=== PATIENT | male | born 1935 | race Caucasian/White ===

== ENCOUNTER 2016-10-23 06:00 | Inpatient (IN) | payer OTHER ==
[2016-09-27 13:22] VITALS: BMI 24.0
--- NOTE | 2016-09-27 13:48 | PAT Medication Instructions ---
Service Date Sep 27, 2016. Current Home Medication List Midodrine (Midodrine HCl), 5 MG PO BID Multivitamins/Minerals (Mvi With Minerals), 1 TAB PO QAM Naproxen (Aleve), 220 MG PO Q12 PRN for Pain Medication Instructions For Your Scheduled Surgery - Hold the following medications the morning of surgery: Multivitamins/Minerals (Mvi With Minerals), 1 TAB PO QAM Naproxen (Aleve), 220 MG PO Q12 PRN for Pain (otherwise okay to continue per surgeon) - Take the following medications the morning of surgery with a sip of water OTHERWISE NOTHING TO EAT OR DRINK AFTER MIDNIGHT: Midodrine (Midodrine HCl), 5 MG PO BID - Take the following medications as scheduled the night before surgery: Midodrine (Midodrine HCl), 5 MG PO BID Naproxen (Aleve), 220 MG PO Q12 PRN for Pain If you have any questions please call us at [phone] or [phone] or [phone]
--- NOTE | 2016-09-27 14:07 | DIAGNOSTIC IMAGING REPORT ---
CHEST PREADMISSION(PA/LAT) CLINICAL HISTORY: Preoperative chest COMPARISON STUDY: 12/25/2011 FINDINGS: The cardiac and mediastinal contours are normal. There is no evidence of focal pulmonary consolidation. There is no evidence of failure. No pleural effusions are visualized.[ A vague rounded opacity at the right lung base is felt to represent a nipple shadow. IMPRESSION: No active disease in the chest. Electronically signed by: Eduardo Robertson M.D. 09/27/2016 2:06 PM Dictated Date/Time: 09/27/2016 2:03 PM
[2016-09-27 14:14] LABS: BASO % 0.4 %; BASO ABS # 0.03 K/uL (0-0.2); COMPLETE YES; HEMATOCRIT 42.6 % (42-52); IG% 0.1 %; LYMPH % 20.8 %; LYMPH ABS # 1.45 K/uL (1.2-3.4); MEAN CORPUSCULAR HEMOGLOBIN 32.1 pg (25-34); MEAN CORPUSCULAR HGB CONC 34.5 g/dl (32-36); MONO % 4.3 %; NEUT % 73.4 %; PLATELET COUNT 216 K/uL (130-400); RED BLOOD COUNT 4.58 M/uL (4.7-6.1); WHITE BLOOD COUNT 6.98 K/uL (4.8-10.8)
[2016-09-27 14:25] LABS: ESTIMATED AVERAGE GLUCOSE 114 mg/dl; HA1C FLAG Normal (Normal)
[2016-09-27 15:06] LABS: BUN/CREATININE RATIO 17.7 (10-20); CALCIUM 9.6 mg/dl (8.5-10.1); CREATININE 1.2 mg/dl (0.60-1.40)
--- NOTE | 2016-10-03 16:25 | History and Physical ---
History & Physical Date Oct 03, 2016. Chief Complaint Right Knee Pain History of Present Illness Edward is a pleasant 81-year-old male who presents for preoperative evaluation prior to a right knee replacement. Patient states that they have been having pain in this knee for many years now, which has gradually worsened, it has now gotten to the point it is affecting his daily activities including walking, standing, going up and down steps. Patient has tried and failed conservative measures including previous cortisone injection, viscosupplementation, PO NSAIDs, as well as previous knee arthroscopy with no relief. At this point in time, patient has failed conservative measures and would like to proceed with a Right knee replacement. Past Medical/Surgical History Patient denies history of HTN, high cholesterol, Diabetes Previous Surgeries: Left TKA 11-12-12 Right Knee Partial medial meniscectomy, Partial lateral meniscectomy, Removal of loose body, 1 cm x 2 cm. Additional History Hepatic Disease: No Endocrine Disorder: No Kidney Disease: No Hypertension: No Heart Disease: No Bleeding Tendencies: No Allergies Coded Allergies: No Known Allergies (Unverified , 09/27/16) Home Medications Scheduled Midodrine (Midodrine HCl), 5 MG PO BID Multivitamins/Minerals (Mvi With Minerals), 1 TAB PO QAM Scheduled PRN Naproxen (Aleve), 220 MG PO Q12 PRN for Pain Physical Examination Skin: warm/dry, no rash Eyes: normal inspection, EOMI, sclerae normal ENT: normal ENT inspection, pharynx normal Head: normocephalic, atraumatic Respiratory/Chest: lungs clear, normal breath sounds, no respiratory distress Cardiovascular: regular rate, rhythm, no edema, no murmur Abdomen / GI: normal bowel sounds, non tender Addiitonal Comments: Physical Exam Exam Findings Details Strength LE * Strength Description - Knee: Right: strength is normal. Knee ROM L * Active ROM - Flexion: 135 degrees, Extension: 0 degrees, Factors: normal, Description: active pain free range of motion. Passive ROM - Flexion: 135 degrees, Extension: 0 degrees, Factors: normal, Description: passive pain free range of motion. Knee ROM R * Active ROM - Flexion: 125 degrees, Extension: 3 degrees, Factors: pain, Description: active painful range of motion. Passive ROM - Flexion: 125 degrees, Extension: 5 degrees, Factors: pain, Description: passive painful range of motion. Strength LE Normal Strength Description - Hip: Right: strength is normal. Ankle/ Foot: Right: strength is normal. Knee * Inspection - Gait: limp. Alignment - Right: neutral, Left: neutral. Ecchymosis - Right: negative, Left: negative. Effusion - Right: mild, Left: normal. Swelling - Right: mild, Left: none. Flexibility - Right: normal, Left: normal. Maximum tenderness - Right: medial joint line, lateral joint line, patella, Left: normal. Patella exam - Crepitation - Right: mild, Left: normal. Patella position - Right: neutral, Left: neutral. Tilt - Right: equal, Left: normal. [facility]'s - lateral - Right: Positive. [facility]'s - medial - Right: Positive. Valgus stress - Right: Positive, trace (<2 mm). Varus stress - Right: Positive, trace (<2 mm). Knee Comments No calf tenderness Knee Normal Inspection - Atrophy - Right: Absent, Left: Absent. Skin - Right: Normal, Left: Normal. Patella exam - Apprehension - Right: Negative, Left: Negative. Q-angle - Right: Normal, Left: Normal. Parisa's - Right: Negative, Left: Negative. [facility]'s - lateral - Left: Negative. Marisol's - medial - Left: Negative. Posterior drawer - Right: Negative, Left: Negative. Anterior drawer - Right: Negative, Left: Negative. Valgus stress - Left: Negative. Varus stress - Left: Negative. Neurovascular LE Normal Neurovascular examination including reflexes, sensation , and pulses is within normal limits. Right Knee X-Ray: Xrays reviewed of the Right knee showing findings consistent with degenerative joint disease including joint space narrowing, subchondral sclerosis and peripheral osteophyte formation. no acute bony pathology, overall varus alignment. Impression: degenerative joint disease of the Right knee with no acute bony pathology noted. Diagnosis Right Knee Osteoarthritis - Further care discussed with patient and at this point in time has failed conservative measures and would like to proceed with a right total knee replacement. Plan on discharge will be home with home health physical therapy. DVT prophalaxis with TEDs, SCDs and will also place on aspirin 81 mg p.o. b.i.d. for a month postop. Patient will have follow up appointment in our office two weeks post op for staple/suture removal and re-evaluation. Patient otherwise has no other questions or concerns.
[~2016-10-23] VITALS: Ht 182.9 cm; Wt 81.6 kg
[2016-10-23] VITALS (11 sets, daily range): BP systolic 116–166; BP diastolic 74–99; PULSE 62–95; TEMP 36.4–37.1; O2SAT 96–99; Ht 182.9 cm; Wt 81.6 kg
[~2016-10-23 06:00] MED LIST: CEFAZOLIN 2000 MG/60 ML D5W IV SCH; LACTATED RINGER'S 1000ML 1,000 ML IV SCH; LACTATED RINGER'S 1000ML 500 ML IV ONE; MULTTAB PO; NAPR1TAB9 PO; PRMT25 PO; ROPIVACAINE 5MG/ML 30 ML 150 MG, BUPIVACAINE/EPINEPHR 0.5% MPF 30 ML, KETOROLAC TROMETH... INFIL SCH
[2016-10-23] MEDS ORDERED: BUPIVACAINE 0.5 % 5 MG/1 ML PF 10ML VIAL ONE (06:40)
[2016-10-23] MEDS ORDERED: BUPIVACAINE 0.25% 30 ML VIAL ONE (06:41)
[2016-10-23] MEDS ORDERED: MIDAZOLAM HCL 1 MG/ML 2ML VIAL ONE ×2 (06:42)
[2016-10-23] MEDS ORDERED: FENTANYL CITRATE INJ 50 MCG/1 ML 2 ML VIAL ONE (06:43)
--- NOTE | 2016-10-23 06:56 | History & Physical Bridge Note ---
H&P Re-Evaluation Bridge Note: I have examined the patient, reviewed the History & Physical and in the interval since the performance of the History & Physical I have noted the following changes of clinical significance: No changes noted
[2016-10-23] MEDS ORDERED: POVIDONE-IODINE OP SOLN 30 ML BTL ONE (06:58)
[2016-10-23] MEDS ORDERED: ORTHO JOINT ANESTHETIC ONE (06:58)
[2016-10-23] MEDS ORDERED: BACITRACIN 50000 UNIT VIAL ONE (06:58)
[2016-10-23] MEDS: TRANEXAMIC ACID INJ 1,000 MG in SODIUM CHLORIDE 0.9% 100ML 100 ML IV SCH ×2 (07:09→10:52)
[2016-10-23] MEDS ORDERED: EpHEDrine SULFATE INJ 50 MG/ML AMP IV PRN (07:30)
[2016-10-23] MEDS ORDERED: FENTANYL CITRATE INJ 50 MCG/1 ML 2 ML VIAL IV PRN (07:30)
[2016-10-23] MEDS ORDERED: ATROPINE SULFATE 0.1 MG/ML 5ML SYR IV PRN (07:30)
[2016-10-23] MEDS ORDERED: ONDANSETRON INJ 2 MG/ML 2 ML VIAL IV PRN ×2 (07:30→09:30)
--- NOTE | 2016-10-23 09:01 | [facility] Operative Report ---
Operative Report Operative Date Oct 23, 2016. Pre-Operative Diagnosis Right Total Knee Arthroplasty Post-Operative Diagnosis Same as preop Procedure(s) Performed Right Total Knee Arthroplasty utilizing Alexander & Nephew journey 2 patient matched total knee arthroplasty size 6 femur 6 tibia 15 Mony [address] 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 Right Total Knee Arthroplasty Complication(s) None Disposition Recovery Room / PACU Indications Patient presents after failing conservative management including injections anti -inflammatory progress activity modification bracing Description of Procedure After proper prepping and draping of the Right lower extremity anterior midline incision was made over the region of the extensor extensor mechanism after meticulous hemostasis was obtained and maintained in subcutaneous tissues a medial parapatellar incision was made The patella was subluxed lateralward the medial lateral gutter were cleaned from any hypertrophic synovitis and scar tissue of the distal femoral block was placed and the distal femoral osteotomy cut was made subsequently the chamfers anterior and posterior osteotomy cuts were made utilizing the 4-in-1 block the tibia was subsequently subluxed anteriorward medial and ateral meniscal remnants were excised in their entirety remnants of the anterior and posterior cruciate ligaments were excised in their entirety excellent exposure of the proximal tibia was obtained the tibial osteotomy guide was placed on the proximal tibial osteotomy cut was made once again the knee was irrigated with copious amounts of sterile saline solution the patella was subsequently everted lateralward thickened scar tissue around the patella was removed the patella was subsequently cut utilizing a freehand technique and was drilled prepared for final preparation and placement of patella socially flexion-extension gaps were checked and the equal and symmetric trials were placed to the appropriate femoral and tibial trials with poly-spacer being placed for equal flexion and extension gaps and full range of motion including extension to 0 and flexion to 140 the trial components after having been taken to recovery range of motion was subsequently removed meticulous hemostasis was obtained and maintained subsequently a knee block injection of joint cocktail including ropivacaine 0.5% 150 mg. Bupivacaine 0.5 % epinephrine 1-200,030 mL's toradol 30 mg dexamethasone 4 mg ketamine 10 mg clonidine 100 micrograms normal saline solution 30 mg was infiltrated into the soft tissues of the posterior knee medial lateral gutters and periosteal synovium special attention was paid to protect neurovascular structures at all times subsequently trial components having been removed the knee was irrigated with sterile saline solution. debris was removed the proximal tibia was subsequently prepared and was made ready for the placement of the tibial component tibial component was also cemented and tamped into position the femoral component was subsequently placed and cemented in the position the patellar component was subsequently cemented in position because hemostasis once again obtained and maintained wound having been thoroughly irrigated with debridement and debridement lavage was performed as well as a medial parapatellar incision closed with #1 Vicryl in interrupted fashion subcutaneous was closed with #2 Vicryl skin was closed with skin clips. PA-C was necessary for prepping and drapping as well as wound closure of deep fascia Sub cutaneous tissue and skin and was necessary for the case. A sterile compressive dressing was placed patient was taken to recovery in stable condition of report dictated by Delvin I attest to the content of the Intraoperative Record and any orders documented therein. Any exceptions are noted below. I attest to the content of the Intraoperative Record and any orders documented therein. Any exceptions are noted below.
[2016-10-23] MEDS ORDERED: PROPOFOL IV EMULSION 10 MG/ML 20 ML VIAL IV ONE (09:13)
[2016-10-23] MEDS ORDERED: LIDOCAINE HCL 2% 2 ML VIAL (20MG/ML) ONE (09:13)
[2016-10-23] MEDS ORDERED: SOD PHOSPHATE/SOD BIPHOSPHATE ENEMA 132 ML BTL PR PRN (09:30)
[2016-10-23] MEDS ORDERED: MAGNESIUM HYDROXIDE SUSP 30 ML UDC PO PRN (09:30)
[2016-10-23] MEDS ORDERED: KETOROLAC TROMETHAMINE 15 MG/ML VIAL IV. PRN (09:30)
[2016-10-23] MEDS ORDERED: MoRPHine SULFATE 2 MG/ML CARP IV PRN (09:30)
[2016-10-23] MEDS ORDERED: BISACODYL 10 MG SUPP PR PRN (09:30)
[2016-10-23] MEDS ORDERED: ALUMINUM/MAGNESIUM/SIMETH (MAALOX MAX) 30 ML UDC PO PRN (09:30)
--- NOTE | 2016-10-23 09:48 | DIAGNOSTIC IMAGING REPORT ---
RIGHT KNEE 2 VIEWS History: Right total knee arthroplasty. Degenerative arthritis. Postop. FINDINGS: The patient is status post a right total knee arthroplasty. The hardware is intact. No fracture or dislocation. Surgical drains are in place. IMPRESSION: Right total knee arthroplasty. No evidence for hardware complication. Electronically signed by: Amaury Joaquin M.D. 10/23/2016 9:47 AM Dictated Date/Time: 10/23/2016 9:46 AM
[2016-10-23] MEDS ORDERED: MoRPHine SULFATE 4 MG/ML 1 ML CARP\\VIAL IV PRN (10:00)
[2016-10-23] MEDS ORDERED: MoRPHine SULFATE 10 MG/ML CARP/VIAL IV PRN (10:00)
--- NOTE | 2016-10-23 10:02 | Anesthesiology Progress Note ---
Anesthesia Post Op Note Date & Time Oct 23, 2016 at 10:02 Vital Signs Pain Intensity: 0 Vital Signs Past 12 Hours Date Time Temp Pulse Resp B/P (MAP) Pulse Ox O2 Delivery O2 Flow Rate FiO2 10/23/16 09:26 36.2 68 14 125/77 97 Mask 10 10/23/16 06:41 36.5 81 20 145/99 98 Room Air Notes Mental Status: alert / awake / arousable, participated in evaluation Pt Amnestic to Procedure: Yes Nausea / Vomiting: adequately controlled Pain: adequately controlled Airway Patency, RR, SpO2: stable & adequate BP & HR: stable & adequate Hydration State: stable & adequate Neuraxial Anesthesia: was administered, sensory block is resolving Anesthetic Complications: no major complications apparent
[2016-10-23] MEDS: D5W AND 1/2NSS + 20MEQ KCL 1,000 ML IV SCH ×2 (11:07→21:15)
[2016-10-23] MEDS: CEFAZOLIN IV 2,000 MG in DEXTROSE 5% 50ML 50 ML IV SCH ×2 (15:57→23:41)
[2016-10-23] MEDS: MIDODRINE 2.5 MG TAB PO SCH (15:57)
[2016-10-23] MEDS: OXYCODONE HCL IR 5 MG TAB (IMMEDIATE RELEASE) PO PRN (15:58)
[2016-10-23] MEDS: DOCUSATE SODIUM 100 MG CAP PO SCH (21:16)
[2016-10-23] MEDS: SENNA 8.6 MG TAB PO SCH (21:16)
[2016-10-23] MEDS: OXYCODONE HCL 10 MG TABCR (OXYCONTIN) PO SCH (21:17)
[2016-10-23] MEDS: ASPIRIN 81 MG ECTAB PO SCH (21:17)
[2016-10-23] MEDS: ACETAMINOPHEN 500 MG TAB PO SCH (21:50)
[2016-10-24] VITALS (9 sets, daily range): BP systolic 114–159; BP diastolic 73–91; PULSE 72–98; TEMP 36.7–37.1; O2SAT 93–99
[2016-10-24] MEDS: ACETAMINOPHEN 500 MG TAB PO SCH ×3 (05:56→21:55)
[2016-10-24] MEDS: D5W AND 1/2NSS + 20MEQ KCL 1,000 ML IV SCH (05:56)
[2016-10-24 06:14] LABS: HEMATOCRIT 37.4 % (42-52); MEAN CELL VOLUME 92.6 fL (80-100); MEAN CORPUSCULAR HEMOGLOBIN 30.4 pg (25-34); MEAN CORPUSCULAR HGB CONC 32.9 g/dl (32-36); MEAN PLATELET VOLUME 11.3 fL (7.4-10.4); PLATELET COUNT 207 K/uL (130-400); RED BLOOD COUNT 4.04 M/uL (4.7-6.1); WHITE BLOOD COUNT 9.76 K/uL (4.8-10.8)
[2016-10-24 06:22] LABS: INR 1.1 (0.9-1.1); PROTHROMBIN TIME (PATIENT) 11.6 SECONDS (9.0-12.0)
[2016-10-24 06:51] LABS: BUN/CREATININE RATIO 16.1 (10-20); CALCIUM 9.1 mg/dl (8.5-10.1); CREATININE 1.1 mg/dl (0.60-1.40); POTASSIUM 4.9 mmol/L (3.5-5.1)
--- NOTE | 2016-10-24 07:04 | Orthopedic Progress Note ---
Orthopedic Progress Note Date of Service Oct 24, 2016. Subjective Post OP Day: 1 (s/p Right TKA) Reports: feeling well, pain controlled w PO medications, Denies: complaints, chest pain, SOB, nausea / vomiting, light headedness, calf pain Additional Notes: has c/o mild right foot pain, no injuries. Objective calves soft nontender, N/V intact, capillary refill less than 2 sec., dressing C /D/I, A&O x3, toes mobile, hemovac drainage (200cc/ 8 hours) Date Time Temp Pulse Resp B/P (MAP) Pulse Ox O2 Delivery O2 Flow Rate FiO2 10/24/16 03:44 36.9 72 18 114/73 (87) 97 Room Air 10/23/16 23:43 Room Air 10/23/16 22:50 37.1 86 16 116/74 (88) 96 Room Air 10/23/16 19:31 36.4 95 16 148/95 (112) 98 Room Air 10/23/16 15:55 136/87 (103) 98 Room Air 10/23/16 15:40 Room Air 10/23/16 15:32 36.5 75 16 166/94 (118) 99 Room Air 2.0 10/23/16 13:19 36.4 63 16 148/79 (102) 98 Nasal Cannula 2.0 10/23/16 12:13 63 18 142/81 (101) 98 Nasal Cannula 2.0 10/23/16 11:03 62 18 136/81 (99) 99 Nasal Cannula 2.0 10/23/16 10:50 98 Nasal Cannula 2.0 10/23/16 10:47 63 18 138/84 (102) 98 Nasal Cannula 2.0 10/23/16 10:15 Nasal Cannula 2.0 10/23/16 10:15 36.5 89 18 147/89 (108) 99 Nasal Cannula 2.0 10/23/16 10:15 99 Nasal Cannula 2.0 10/23/16 10:05 36.0 64 14 140/88 98 Nasal Cannula 2 10/23/16 09:55 67 13 133/88 100 Nasal Cannula 2 10/23/16 09:45 69 16 135/82 98 Nasal Cannula 2 10/23/16 09:35 72 15 135/81 99 Nasal Cannula 2 10/23/16 09:26 36.2 68 14 125/77 97 Mask 10 Laboratory Results 24 Hours: Test 10/24/16 05:44 Hematocrit 37.4 % Hemoglobin 12.3 g/dL Prothromb Time International Ratio 1.1 Prothrombin Time 11.6 SECONDS Assessment & Plan Assessment: POD #1 s/p right tka -pt/ot -dvt with rama/scd/asa -plan for d/c home with OPPT @ [facility]. will monitor right foot pain, minimal tenderness, no erythema or warmth. might be related to resting on foot bump during surgery, if pain continues will order xrays. Discharge Planning DVT Prophylaxis: TEDs, SCDs, ASA Therapy: Physical Therapy
--- NOTE | 2016-10-24 07:48 | Anesthesiology Progress Note ---
Anesthesia Post Op Note Date & Time Oct 24, 2016 at 07:47 Vital Signs Pain Intensity: 0.0 Vital Signs Past 12 Hours Date Time Temp Pulse Resp B/P (MAP) Pulse Ox O2 Delivery O2 Flow Rate FiO2 10/24/16 07:43 96 Room Air 10/24/16 07:31 36.7 72 18 130/82 (98) 96 Room Air 10/24/16 03:44 36.9 72 18 114/73 (87) 97 Room Air 10/23/16 23:43 Room Air 10/23/16 22:50 37.1 86 16 116/74 (88) 96 Room Air Notes Mental Status: alert / awake / arousable Pt Amnestic to Procedure: Yes Nausea / Vomiting: adequately controlled Pain: adequately controlled Airway Patency, RR, SpO2: stable & adequate BP & HR: stable & adequate Hydration State: stable & adequate Neuraxial Anesthesia: sensory block resolved Anesthetic Complications: no major complications apparent
[2016-10-24] MEDS: DOCUSATE SODIUM 100 MG CAP PO SCH ×2 (08:56→20:20)
[2016-10-24] MEDS: MULTIVITAMIN TAB PO SCH (08:56)
[2016-10-24] MEDS: ASPIRIN 81 MG ECTAB PO SCH ×2 (08:56→20:20)
[2016-10-24] MEDS: PANTOprazole SOD 40 MG TAB PO SCH (08:57)
[2016-10-24] MEDS: OXYCODONE HCL 10 MG TABCR (OXYCONTIN) PO SCH ×2 (09:00→20:20)
[2016-10-24] MEDS: MIDODRINE 2.5 MG TAB PO SCH ×2 (10:36→14:42)
[2016-10-24] MEDS: OXYCODONE HCL IR 5 MG TAB (IMMEDIATE RELEASE) PO PRN ×2 (11:57→17:19)
--- NOTE | 2016-10-24 17:33 | Discharge Instructions ---
Discharge Instructions Date of Service Oct 24, 2016. Admission Reason for Admission: Right Knee Osteoarthritis Discharge Discharge Diagnosis / Problem: right total knee replacement Discharge Goals Goal(s): Decrease discomfort, Improve function, Increase independence Activity Recommendations Activity Limitations: as noted below Weightbearing Status: Right weightbearing (as tolerated) . Instructions / Follow-Up Instructions / Follow-Up ACTIVITY RECOMMENDATIONS: SELF CARE INSTRUCTIONS AFTER TOTAL KNEE REPLACEMENT A. You may need to continue a physical therapy program after discharge from the hospital. There are several options available to you. Your doctor will assist you in selecting the best one for you. 1. An out-patient facility 2 to 3 times a week for therapy or home therapy. 2. Continue working on all exercises taught to you in the hospital. Your goals should be to increase bending of your knee to 90 degrees and beyond and to fully straighten your knee. B. You may progress at your own pace from walking with a walker or crutches to a cane; then to no assistive devices. C. Make walking a part of your daily routine. Be up as much as comfortable with rest periods throughout the day. Rest with leg elevation is very important. Use the ice wrap frequently for the first 3-4 weeks. D. There are no restrictions on activities. 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 E. Wear the long elastic stockings (FRANK hose) 20 hours a day for 2 weeks after surgery. They can be removed several times a day for laundering and for a bath. F. You may shower, no tub baths until cleared by your doctor. SPECIAL CARE INSTRUCTIONS: VERY IMPORTANT TO READ AND REVIEW A. There are a few signs you need to watch for after you are home. Call [facility] if you notice any of the followin. Increased severe knee pain. Some pain is expected especially when you exercise. 2. Increased swelling in your leg or knee; pain or swelling of the calf muscle in either lower leg. 3. Any fluid drainage from the incision. 4. Shortness of breath or chest pain. B. Please call [facility] at if you have any concerns or questions about your operation or recovery. The doctor or his nurse will return your call promptly. C. You must take antibiotics before dental work, bladder, bowel or other surgery. Your doctor will provide you with a permanent care to carry describing this precaution. IMPORTANT: * REMEMBER TO TAKE ASPIRIN, 81 MG, TWICE DAILY FOR 4 WEEKS UNLESS OTHERWISE DIRECTED. THIS IS YOUR BLOOD THINNER. * HIGH RISK PATIENTS MAY BE PRESCRIBED A STRONGER BLOOD THINNER. THIS WILL BE PROVIDED AT DISCHARGE. * CALL IF INCREASED PAIN, REDNESS, DRAINAGE OR FEVER GREATER THAT 101. * WEAR FRANK HOSE 20 HOURS PER DAY FOR 2 WEEKS. * YOU MAY HAVE A LARGE BAND-AID LIKE DRESSING (SILVERON). THIS WILL REMAIN ON YOUR INCISION FOR 7 DAYS, THEN CAN BE REMOVED. IF INCISION IS LEAKING THROUGH DRESSING, CALL THE OFFICE . DERMABOND Prineo- This is a mesh tape dressing that is covered with glue. It should remain in place until the incision is properly healed, usually 10-14 days. This dressing is designed to naturally slough off. You may trim the excess mesh tape as it peels off. Incision may be briefly wet in a shower. Dry immediately by blotting with a clean, dry towel. Do not bath or swim until instructed by your doctor. Do not scratch, rub, or pick at the dressing. Do not apply any topical ointments or lotions until dressing is completely removed and/or instructed by your doctor. There may be a small piece of suture material at one end of your incision. Do not pull or trim this. If it is bothersome or catching on clothing, you may cover it with a band-aid. FOLLOW UP VISIT: If appointment is not already scheduled: Please call [facility] to make a follow-up appointment for 2 weeks after your surgery at . Current Hospital Diet Patient's current hospital diet: Regular Diet Discharge Diet Recommended Diet: Regular Diet Procedures Procedures Performed: Right Total Knee Arthroplasty utilizing Alexander & Nephew journey 2 patient matched total knee arthroplasty size 6 femur 6 tibia 15 Mony 35 oval patella Pending Studies Studies pending at discharge: no Laboratory Results Hemoglobin A1c Test 09/27/16 13:27 Range/Units Estimated Average Glucose 114 mg/dl Hemoglobin A1c 5.6 4.5-5.6 % Medical Emergencies . Who to Call and When: Medical Emergencies: If at any time you feel your situation is an emergency, please call 911 immediately. . Non-Emergent Contact Non-Emergency issues call your: Primary Care Provider . "Provider Documentation" section prepared by Richard De Anda. . VTE Core Measure Inpt VTE Proph given/why not?: Other Anticoagulation (ASA 81mg po bid x 1 month ), T.E.DHomero Stockings, SCD's [place] Drug Monitoring Program Search Results: patient reviewed within database, no issues identified
[2016-10-24] MEDS: SENNA 8.6 MG TAB PO SCH (20:20)
[2016-10-25] MEDS: OXYCODONE HCL IR 5 MG TAB (IMMEDIATE RELEASE) PO PRN (02:26)
[2016-10-25] MEDS: ACETAMINOPHEN 500 MG TAB PO SCH (05:16)
--- NOTE | 2016-10-25 06:55 | Orthopedic Progress Note ---
Orthopedic Progress Note Date of Service Oct 25, 2016. Subjective Post OP Day: 2 Reports: feeling well, pain controlled w PO medications, Denies: complaints, chest pain, SOB, nausea / vomiting, light headedness, calf pain Objective calves soft nontender, N/V intact, capillary refill less than 2 sec., incision C /D/I, A&O x3, toes mobile Date Time Temp Pulse Resp B/P (MAP) Pulse Ox O2 Delivery O2 Flow Rate FiO2 10/24/16 23:37 Room Air 10/24/16 22:50 37.1 88 19 131/74 (93) 93 Room Air 10/24/16 15:45 36.7 73 16 131/75 (93) 98 Room Air 10/24/16 15:30 Room Air 10/24/16 14:41 132/81 (98) 10/24/16 11:51 98 99 10/24/16 11:46 36.8 89 17 128/82 (97) 97 Room Air 10/24/16 10:35 154/91 (112) 10/24/16 07:43 96 Room Air 10/24/16 07:31 36.7 72 18 130/82 (98) 96 Room Air 10/24/16 07:25 Room Air Assessment & Plan Assessment: POD #2 s/p right tka -pt/ot -dvt with rama/scd/asa -plan for d/c home with OPPT @ [facility]. ankle pain improved since dressing down, will continue to observe. Discharge Planning Discharge Planning: home with oppt DVT Prophylaxis: TEDs, SCDs, ASA Therapy: Physical Therapy
[2016-10-25] MEDS ORDERED: ACET-24 PO (06:57)
[2016-10-25] MEDS ORDERED: CLC100 PO (06:57)
[2016-10-25] MEDS ORDERED: ONDA8TAB6 PO (06:57)
[2016-10-25] MEDS ORDERED: OXYSR10 PO (06:57)
[2016-10-25] MEDS ORDERED: ASPEC81 PO (06:57)
[2016-10-25] MEDS ORDERED: RXC5 PO (06:57)
[2016-10-25] MEDS ORDERED: CLB200 PO (06:57)
[2016-10-25 07:28] VITALS: BP 126/80; PULSE 84; TEMP 36.9; O2SAT 96
[2016-10-25 07:30] VITALS: O2SAT 96
--- NOTE | 2016-10-25 07:38 | Discharge Summary ---
Orthopedic Discharge Summary Admission Date/Reason Oct 23, 2016 at 07:05 Right Knee Osteoarthritis. Discharge Date/Disposition Oct 25, 2016 Home Diagnosis Principal Diagnosis: Right Knee Osteoarthritis Secondary Diagnoses/Problems: no history of HTN, DM, high cholesterol. Procedure(s) Performed Right Total Knee [facility]thro[facility] patient matched total knee arthroplasty size 6 femur 6 tibia 15 Mony 35 oval patella Consultations NONE Medication Reconciliation New Medications: Ondansetron Hcl (Zofran) 8 Mg Tab 8 MG PO Q8 PRN for Nausea, #20 TAB Acetaminophen (Sb Non-Aspirin Extra Stre) 500 Mg Tab 1000 MG PO Q8H, #126 TAB Aspirin (Aspirin EC Low Dose) 81 Mg Ectab 81 MG PO BID for 30 Days, #60 TAB Celecoxib (Celebrex) 200 Mg Cap 200 MG PO BID for 30 Days, #60 CAP Docusate Sodium (Docusate Sodium) 100 Mg Cap 100 MG PO BID for 15 Days, #30 CAP Oxycodone HCl (Oxycontin) 10 Mg Tabcr 10 MG PO Q12, #20 Oxycodone HCl (Oxycodone HCl) 5 Mg Tab 5-10 MG PO Q4H PRN for Pain, #60 TAB Continued Medications: Midodrine (Midodrine HCl) 2.5 Mg Tab 5 MG PO BID Multivitamins/Minerals (Mvi With Minerals) Tab 1 TAB PO QAM, TAB Discontinued Medications: Naproxen (Aleve) 220 Mg Tab 220 MG PO Q12 PRN for Pain, TAB Admission Physical Exam As per Admitting History & Physical. Hospital Course Patient was a same day admission after undergoing a successful Right TKA. he tolerated the procedure well. Post-operatively, his activity was progressed and well tolerated. Please refer to daily progress notes and PT notes for complete details. After exam on 10/25/16, patient felt to be stable for discharge home with OPPT. Patient will f/u in the office in 2 weeks for further evaluation including x-rays and incision check, sooner if having any issues or concerns. Below are pertinent labs/studies during their hospital stay: Last Vital Signs Documentation Date Time Temp Pulse Resp B/P (MAP) Pulse Ox O2 Delivery O2 Flow Rate FiO2 10/25/16 07:30 96 Room Air 10/25/16 07:28 36.9 84 16 126/80 (95) 10/23/16 15:32 2.0 Last Resulted CBC 10/24/16 05:44 Last Resulted BMP 10/24/16 05:44 Discharge Instructions ACTIVITY RECOMMENDATIONS: SELF CARE INSTRUCTIONS AFTER TOTAL KNEE REPLACEMENT A. You may need to continue a physical therapy program after discharge from the hospital. There are several options available to you. Your doctor will assist you in selecting the best one for you. 1. An out-patient facility 2 to 3 times a week for therapy or home therapy. 2. Continue working on all exercises taught to you in the hospital. Your goals should be to increase bending of your knee to 90 degrees and beyond and to fully straighten your knee. B. You may progress at your own pace from walking with a walker or crutches to a cane; then to no assistive devices. C. Make walking a part of your daily routine. Be up as much as comfortable with rest periods throughout the day. Rest with leg elevation is very important. Use the ice wrap frequently for the first 3-4 weeks. D. There are no restrictions on activities. You may ride in a car, shop, participate in quality associate and all social activities. E. Wear the long elastic stockings (FRANK hose) 20 hours a day for 2 weeks after surgery. They can be removed several times a day for laundering and for a bath. F. You may shower, no tub baths until cleared by your doctor. SPECIAL CARE INSTRUCTIONS: VERY IMPORTANT TO READ AND REVIEW A. There are a few signs you need to watch for after you are home. Call [facility] if you notice any of the followin. Increased severe knee pain. Some pain is expected especially when you exercise. 2. Increased swelling in your leg or knee; pain or swelling of the calf muscle in either lower leg. 3. Any fluid drainage from the incision. 4. Shortness of breath or chest pain. B. Please call [facility] at if you have any concerns or questions about your operation or recovery. The doctor or his nurse will return your call promptly. C. You must take antibiotics before dental work, bladder, bowel or other surgery. Your doctor will provide you with a permanent care to carry describing this precaution. IMPORTANT: * REMEMBER TO TAKE ASPIRIN, 81 MG, TWICE DAILY FOR 4 WEEKS UNLESS OTHERWISE DIRECTED. THIS IS YOUR BLOOD THINNER. * HIGH RISK PATIENTS MAY BE PRESCRIBED A STRONGER BLOOD THINNER. THIS WILL BE PROVIDED AT DISCHARGE. * CALL IF INCREASED PAIN, REDNESS, DRAINAGE OR FEVER GREATER THAT 101. * WEAR FRANK HOSE 20 HOURS PER DAY FOR 2 WEEKS. * DERMABOND Prineo- This is a mesh tape dressing that is covered with glue. It should remain in place until the incision is properly healed, usually 10-14 days. This dressing is designed to naturally slough off. You may trim the excess mesh tape as it peels off. Incision may be briefly wet in a shower. Dry immediately by blotting with a clean, dry towel. Do not bath or swim until instructed by your doctor. Do not scratch, rub, or pick at the dressing. Do not apply any topical ointments or lotions until dressing is completely removed and/or instructed by your doctor. There may be a small piece of suture material at one end of your incision. Do not pull or trim this. If it is bothersome or catching on clothing, you may cover it with a band-aid. FOLLOW UP VISIT: If appointment is not already scheduled: Please call [facility] to make a follow-up appointment for 2 weeks after your surgery at .
[2016-10-25] MEDS: OXYCODONE HCL 10 MG TABCR (OXYCONTIN) PO SCH (08:44)
[2016-10-25] MEDS: PANTOprazole SOD 40 MG TAB PO SCH (08:44)
[2016-10-25] MEDS: ASPIRIN 81 MG ECTAB PO SCH (08:44)
[2016-10-25] MEDS: DOCUSATE SODIUM 100 MG CAP PO SCH (08:44)
[2016-10-25] MEDS: MIDODRINE 2.5 MG TAB PO SCH (08:45)
[2016-10-25] MEDS: MULTIVITAMIN TAB PO SCH (08:45)
[2016-10-25 12:06] VITALS: BP 126/80; PULSE 84; TEMP 36.9; O2SAT 96
[2016-10-25] MEDS ORDERED: CeleBREX 200 MG CAP PO SCH (21:00)
[2016-12-11] MEDS ORDERED: DOCU-94 PO (15:00)
[2016-12-11] MEDS ORDERED: TYLOTC500 PO (15:47)
== END 2016-10-25 12:21 | disposition home or self-care (01) | DRG 470 ==
LOC: C.ACU 06:00 → C.3E 07:05 → ENRESERV 09:59
PROVIDERS: ADMIT Orthopaedic Surgery; ATTEND Orthopaedic Surgery
PROC: 0SRC0J9 Replacement of Right Knee Joint with Synthetic Substitute, Cemented, Open Approach (ICD-10-PCS; principal; 2016-10-23 08:00)
DX: M17.11 Unilateral primary osteoarthritis, right knee (principal); I95.1 Orthostatic hypotension; R25.1 Tremor, unspecified; Z96.652 Presence of left artificial knee joint; Z79.1 Long term (current) use of non-steroidal anti-inflammatories (NSAID); Z79.899 Other long term (current) drug therapy

== ENCOUNTER 2016-12-25 10:49 | Observation (INO) | payer OTHER ==
[2016-12-11 15:02] VITALS: BMI 25.0
--- NOTE | 2016-12-24 09:54 | HISTORY & PHYSICAL EXAMINATION ---
DATE OF ADMISSION: 12/25/2016 HISTORY OF PRESENT ILLNESS: The patient presents with right knee severe end-stage DJD. He is a very pleasant 81-year-old white male who presents with right knee pain. He has been nonresponsive to conservative therapy including physical therapy, anti-inflammatories, relative rest, activity modification, and presents for right total knee arthroplasty. PAST MEDICAL HISTORY: Otherwise unremarkable. The patient denies history of hypertension, hypercholesterolemia, lung or blood issues. FAMILY HISTORY: Otherwise unremarkable and noncontributory. SOCIAL HISTORY: The patient denies history of alcohol, drug or smoking use. PAST SURGICAL HISTORY: Consistent with previous left total knee arthroplasty. REVIEW OF SYSTEMS: Unremarkable. See history of present illness for pertinent positives. ALLERGIES: None. PHYSICAL EXAMINATION: HEENT: Otherwise unremarkable. Atraumatic, normocephalic. HEART: Regular at 72 beats per minute. LUNGS: Clear. No rales, rhonchi or wheezes noted. ABDOMEN: Soft, nontender, nondistended. Bowel sounds are present in all 4 quadrants. RECTAL: No rectal examination was performed. MUSCULOSKELETAL: Severe end-stage degenerative joint disease, right knee. PLAN: Right total knee arthroplasty, postoperative pain management, DVT prophylaxis, antibiotics as noted above.
[~2016-12-25] VITALS: Ht 182.9 cm; Wt 84.1 kg
[2016-12-25] VITALS (8 sets, daily range): BP systolic 122–157; BP diastolic 71–103; PULSE 67–80; TEMP 36.4–37.4; O2SAT 96–99; Ht 182.9 cm; Wt 84.1 kg
[~2016-12-25 10:49] MED LIST changes: +BUPIVACAINE 0.25% 30 ML VIAL ONE; +BUPIVACAINE 0.5 % 5 MG/1 ML PF 10ML VIAL ONE; +DOCU-94 PO; -LACTATED RINGER'S 1000ML 500 ML IV ONE; -NAPR1TAB9 PO; -ROPIVACAINE 5MG/ML 30 ML 150 MG, BUPIVACAINE/EPINEPHR 0.5% MPF 30 ML, KETOROLAC TROMETH... INFIL SCH; +TYLOTC500 PO
[2016-12-25] MEDS ORDERED: PROPOFOL IV EMULSION 10 MG/ML 20 ML VIAL IV ONE (11:20)
[2016-12-25] MEDS ORDERED: PHENYLEPHRINE 100MCG/ML 5ML SYR ONE (11:20)
[2016-12-25] MEDS ORDERED: EpHEDrine SULFATE 50MG/5ML SYR ONE (11:20)
[2016-12-25] MEDS ORDERED: MIDAZOLAM HCL 1 MG/ML 2ML VIAL ONE (11:20)
[2016-12-25] MEDS ORDERED: FENTANYL CITRATE INJ 50 MCG/1 ML 2 ML VIAL ONE (11:20)
[2016-12-25] MEDS ORDERED: LIDOCAINE HCL 2% 2 ML VIAL (20MG/ML) ONE (11:20)
[2016-12-25] MEDS ORDERED: BACITRACIN 50000 UNIT VIAL ONE (12:24)
--- NOTE | 2016-12-25 12:43 | History & Physical Bridge Note ---
H&P Re-Evaluation Bridge Note: I have examined the patient, reviewed the History & Physical and in the interval since the performance of the History & Physical I have noted the following changes of clinical significance: No changes notedThe patient is having a right knee VMO/Quad repair on a previous Total knee replacement
--- NOTE | 2016-12-25 12:45 | History and Physical ---
History & Physical Date Dec 25, 2016. Chief Complaint Patient presents for a right the VMO quadricep repair previous right total knee arthroplasty. Sustained tear of his VMO medial retinacular repair History of Present Illness The patient is a 81 year old male with complaints of swelling or weakness to the right knee status post tear VMO retinacular repair Past Medical/Surgical History Surgical Problems: (1) S/P TKR (total knee replacement) Additional History Hepatic Disease: No Endocrine Disorder: No Kidney Disease: No Hypertension: No Heart Disease: No Bleeding Tendencies: No Infectious Diseases: No Allergies Coded Allergies: No Known Allergies (Verified , 12/25/16) Home Medications Scheduled Acetaminophen (Tylenol), 1,000 MG PO PRN Docusate Sodium (Colace), 1 CAP PO PRN Midodrine (Midodrine HCl), 5 MG PO BID Multivitamins/Minerals (Mvi With Minerals), 1 TAB PO QAM Physical Examination Skin: warm/dry, no rash Eyes: normal inspection, EOMI, sclerae normal ENT: normal ENT inspection, pharynx normal Head: normocephalic, atraumatic Neck: supple, no adenopathy, trachea midline Respiratory/Chest: lungs clear, normal breath sounds, no respiratory distress Cardiovascular: regular rate, rhythm, no edema, no murmur Abdomen / GI: normal bowel sounds, non tender Back: normal inspection Extremities: + pertinent finding (care VMO quad tendon status post total knee arthroplasty right knee plan for repair) Neurologic/Psych: no motor/sensory deficits, alert, normal reflexes, oriented x 3 Diagnosis Care VMO quadriceps tendon right knee status post total knee arthroplasty tear repair VMO quadriceps tendon Plan of Treatment Repair quadriceps tendon medial retinaculum postoperative pain management DVT prophylaxis antibiotics
--- NOTE | 2016-12-25 13:10 | HISTORY & PHYSICAL EXAMINATION ---
DATE OF ADMISSION: 12/25/2016 ADDENDUM The history and physical was dictated yesterday 12/24/2016. The history and physical should be amended to repair of medial retinacular tear of a previous total knee arthroplasty. POSTOPERATIVE DIAGNOSIS: Status post repair of VMO quadriceps tendon of right total knee arthroplasty. Status post previous repair.
[2016-12-25] MEDS ORDERED: EpHEDrine SULFATE INJ 50 MG/ML AMP IV PRN (13:15)
[2016-12-25] MEDS ORDERED: ONDANSETRON INJ 2 MG/ML 2 ML VIAL IV PRN ×2 (13:15→14:15)
[2016-12-25] MEDS ORDERED: PHENYLEPHRINE 100MCG/ML 5ML SYR IV PRN (13:15)
[2016-12-25] MEDS ORDERED: KETOROLAC TROMETHAMINE 30 MG/ML VIAL IV. PRN (13:15)
[2016-12-25] MEDS ORDERED: ATROPINE SULFATE 0.1 MG/ML 5ML SYR IV PRN (13:15)
[2016-12-25] MEDS ORDERED: HYDROmorphone INJ 2 MG/ML SYR/VIAL IV PRN (13:15)
--- NOTE | 2016-12-25 13:47 | [facility] Operative Report ---
Operative Report Operative Date Dec 25, 2016. Pre-Operative Diagnosis medial retinacular tear of a previous total knee arthroplasty Post-Operative Diagnosis same Procedure(s) Performed Right Knee Quadriceps Tendon Repair of medial retinaculum re-tear from the previous a medial retinacular arthrotomy Surgeon Dr. Hargrove Tobacco Stripper Hand Surgeon(s) Olu Mendieta PA-C Estimated Blood Loss 5 ml Findings Patient is status post total knee Orthoplast had a hyperflexion fall injury sustaining a tear was medial retinacular repair presents for medial retinacular long tendon repair Specimens none per surgeon Complication(s) None Disposition Recovery Room / PACU Indications Patient presents after having had a hole thank you tearing his medial retinaculum after having had a total knee arthroplasty Description of Procedure After proper prepping draping the right lower extremity and the incision made over the region the previous extensor mechanism incision and medial parapatellar retinaculum was evaluated evidence of the tear of the previous medial retinacular repair there was taken occasional subcutaneous prepatellar area in the particular portion knee joint illness with of infection was noted is all traumatic occurred after his wound healed the medial lateral collateral ligament attention was noted be excellent no evidence of instability was noted Lausier irrigated with copious sterile saline solution fluid was removed the medial retinaculum was socially freed from scarred in obtains tissues was repaired back to the quadricep extensor mechanism utilizing #2 FiberWire subcutaneous screws 2 Vicryl skin was closed skin clips sterile compressive dressing placed as well as a knee immobilizer patient taken recovery in stable condition stable) Olu MAJANO was senior administrative assistant was necessary for retraction of the fascia and closure of fascial defect closure defect is subcutaneous and skin was necessary for the case I attest to the content of the Intraoperative Record and any orders documented therein. Any exceptions are noted below.
[2016-12-25] MEDS ORDERED: OXYCODONE HCL IR 5 MG TAB (IMMEDIATE RELEASE) PO PRN (14:15)
[2016-12-25] MEDS ORDERED: MoRPHine SULFATE 4 MG/ML 1 ML CARP\\VIAL IV PRN (14:15)
[2016-12-25] MEDS ORDERED: MoRPHine SULFATE 2 MG/ML CARP IV PRN (14:15)
[2016-12-25] MEDS ORDERED: BISACODYL 10 MG SUPP PR PRN (14:15)
[2016-12-25] MEDS ORDERED: ALUMINUM/MAGNESIUM/SIMETH (MAALOX MAX) 30 ML UDC PO PRN (14:15)
[2016-12-25] MEDS ORDERED: MAGNESIUM HYDROXIDE SUSP 30 ML UDC PO PRN (14:15)
--- NOTE | 2016-12-25 15:21 | Anesthesiology Progress Note ---
Anesthesia Post Op Note Date & Time Dec 25, 2016 at 15:21 Vital Signs Pain Intensity: 0 Vital Signs Past 12 Hours Date Time Temp Pulse Resp B/P (MAP) Pulse Ox O2 Delivery O2 Flow Rate FiO2 12/25/16 14:46 67 16 12/25/16 14:46 67 16 100 12/25/16 14:45 132/75 12/25/16 14:41 65 10 12/25/16 14:41 66 10 128/71 100 12/25/16 14:36 66 17 125/77 98 12/25/16 14:36 65 17 12/25/16 14:31 69 14 100 12/25/16 14:31 69 14 12/25/16 14:30 129/81 12/25/16 14:26 71 15 12/25/16 14:26 70 15 100 12/25/16 14:25 123/85 12/25/16 14:21 72 17 99 12/25/16 14:21 71 17 12/25/16 14:20 121/73 12/25/16 14:16 65 13 100 12/25/16 14:16 65 13 12/25/16 14:15 114/71 12/25/16 14:11 66 18 100 12/25/16 14:11 66 18 12/25/16 14:10 108/73 12/25/16 14:08 67 17 12/25/16 14:08 72 17 100 12/25/16 14:05 115/70 12/25/16 14:03 67 11 100 12/25/16 14:03 66 11 12/25/16 14:00 96/66 12/25/16 13:58 70 19 12/25/16 13:58 68 19 118/67 99 12/25/16 13:58 36.2 69 16 118/67 99 Oxymask 10 12/25/16 11:36 36.8 80 20 151/85 (107) 97 Room Air Notes Mental Status: alert / awake / arousable, participated in evaluation Pt Amnestic to Procedure: Yes Nausea / Vomiting: adequately controlled Pain: adequately controlled Airway Patency, RR, SpO2: stable & adequate BP & HR: stable & adequate Hydration State: stable & adequate Anesthetic Complications: no major complications apparent
[2016-12-25] MEDS ORDERED: IV FLUIDS COMPLETED PRN (16:00)
[2016-12-25] MEDS: D5W AND 1/2NSS + 20MEQ KCL 1,000 ML IV SCH (16:22)
[2016-12-25] MEDS: KETOROLAC TROMETHAMINE 15 MG/ML VIAL IV. SCH (17:39)
[2016-12-25] MEDS ORDERED: INFLUENZA ADMINISTRATION CHARGE ONE (18:45)
[2016-12-25] MEDS ORDERED: INFLUENZA VACCINE HIGH DOSE 65+ 0.5 ML SYR IM. ONE (18:45)
[2016-12-25] MEDS: MIDODRINE 2.5 MG TAB PO SCH (21:28)
[2016-12-25] MEDS: CEFAZOLIN IV 2,000 MG in DEXTROSE 5% 50ML 50 ML IV SCH (21:29)
[2016-12-25] MEDS: ACETAMINOPHEN 500 MG TAB PO SCH (21:29)
[2016-12-26] MEDS: KETOROLAC TROMETHAMINE 15 MG/ML VIAL IV. SCH ×3 (00:52→12:01)
[2016-12-26] MEDS: D5W AND 1/2NSS + 20MEQ KCL 1,000 ML IV SCH ×2 (00:52→12:01)
[2016-12-26 00:57] VITALS: TEMP 36.8
[2016-12-26 04:39] VITALS: BP 132/81; PULSE 78; TEMP 36.9; O2SAT 96
[2016-12-26] MEDS: CEFAZOLIN IV 2,000 MG in DEXTROSE 5% 50ML 50 ML IV SCH (05:28)
[2016-12-26] MEDS: ACETAMINOPHEN 500 MG TAB PO SCH ×2 (05:29→13:52)
[2016-12-26 05:46] LABS: HEMATOCRIT 36.8 % (42-52); MEAN CELL VOLUME 90.9 fL (80-100); MEAN CORPUSCULAR HEMOGLOBIN 30.9 pg (25-34); MEAN PLATELET VOLUME 10.8 fL (7.4-10.4); PLATELET COUNT 248 K/uL (130-400); RED BLOOD COUNT 4.05 M/uL (4.7-6.1); WHITE BLOOD COUNT 8.22 K/uL (4.8-10.8)
[2016-12-26 06:24] LABS: BUN/CREATININE RATIO 16.1 (10-20); CALCIUM 8.7 mg/dl (8.5-10.1)
--- NOTE | 2016-12-26 06:53 | Orthopedic Progress Note ---
Orthopedic Progress Note Date of Service Dec 26, 2016. Subjective Post OP Day: 1 Reports: feeling well, pain controlled w PO medications, Denies: complaints, chest pain, SOB, nausea / vomiting, light headedness, calf pain Objective calves soft nontender, N/V intact, capillary refill less than 2 sec., dressing C /D/I, A&O x3, toes mobile Date Time Temp Pulse Resp B/P (MAP) Pulse Ox O2 Delivery O2 Flow Rate FiO2 12/26/16 04:39 36.9 78 16 132/81 (98) 96 Room Air 12/26/16 00:57 36.8 12/25/16 23:21 37.4 79 16 122/71 (88) 96 Room Air 12/25/16 22:40 Room Air 12/25/16 19:46 36.5 75 17 157/98 (117) 97 Room Air 12/25/16 18:56 36.5 79 17 154/103 (120) 97 Room Air 12/25/16 18:01 37.1 78 17 145/90 (108) 99 Room Air 12/25/16 16:58 36.6 70 17 136/83 (100) 99 Nasal Cannula 1.0 12/25/16 16:29 36.4 70 17 150/81 (104) 98 Room Air 1.0 12/25/16 16:00 97 Nasal Cannula 2.0 12/25/16 16:00 36.6 67 16 137/88 (104) 97 Nasal Cannula 2.0 12/25/16 16:00 97 Nasal Cannula 2.0 12/25/16 15:31 36.5 67 18 133/87 98 Nasal Cannula 2 12/25/16 15:27 66 15 99 12/25/16 15:27 67 15 12/25/16 15:25 137/89 12/25/16 15:22 69 17 12/25/16 15:22 67 17 99 12/25/16 15:21 128/90 12/25/16 15:17 71 14 98 12/25/16 15:17 70 14 12/25/16 15:15 137/80 12/25/16 15:12 72 16 12/25/16 15:12 72 16 99 12/25/16 15:10 134/82 12/25/16 15:07 71 18 99 12/25/16 15:07 71 18 1010/17 15:05 135/85 12/25/16 15:02 71 13 99 12/25/16 15:02 72 13 12/25/16 15:00 130/83 12/25/16 14:57 75 20 99 12/25/16 14:57 74 20 12/25/16 14:56 138/82 12/25/16 14:52 72 19 99 12/25/16 14:52 72 19 12/25/16 14:50 113/86 12/25/16 14:47 66 16 100 12/25/16 14:47 65 16 12/25/16 14:46 67 16 12/25/16 14:46 67 16 100 12/25/16 14:45 132/75 12/25/16 14:41 65 10 12/25/16 14:41 66 10 128/71 100 12/25/16 14:36 66 17 125/77 98 12/25/16 14:36 65 17 12/25/16 14:31 69 14 100 12/25/16 14:31 69 14 12/25/16 14:30 129/81 12/25/16 14:26 71 15 12/25/16 14:26 70 15 100 12/25/16 14:25 123/85 12/25/16 14:21 72 17 99 12/25/16 14:21 71 17 12/25/16 14:20 121/73 12/25/16 14:16 65 13 100 12/25/16 14:16 65 13 12/25/16 14:15 114/71 12/25/16 14:11 66 18 100 12/25/16 14:11 66 18 12/25/16 14:10 108/73 12/25/16 14:08 67 17 12/25/16 14:08 72 17 100 12/25/16 14:05 115/70 12/25/16 14:03 67 11 100 12/25/16 14:03 66 11 12/25/16 14:00 96/66 12/25/16 13:58 70 19 12/25/16 13:58 68 19 118/67 99 12/25/16 13:58 36.2 69 16 118/67 99 Oxymask 10 12/25/16 11:36 36.8 80 20 151/85 (107) 97 Room Air Laboratory Results 24 Hours: Test 12/26/16 05:15 Hematocrit 36.8 % Hemoglobin 12.5 g/dL Assessment & Plan Assessment: POD #1 s/p Right Knee Quadriceps Tendon Repair of medial retinaculum re-tear pt/ot dvt proph with rama/scd/asa immob while ambulating x 2 weeks, no forced flexion, may remove when in bed Discharge Planning Discharge Planning: home with oppt DVT Prophylaxis: TEDs, SCDs, ASA Therapy: Physical Therapy
[2016-12-26] MEDS ORDERED: ASPEC81 PO (07:04)
[2016-12-26] MEDS ORDERED: ONDA8TAB6 PO (07:04)
[2016-12-26] MEDS ORDERED: OXYC-57 PO (07:04)
[2016-12-26 07:31] VITALS: BP 106/67; PULSE 69; TEMP 37; O2SAT 96
[2016-12-26] MEDS ORDERED: PANTOprazole SOD 40 MG TAB PO SCH (09:00)
[2016-12-26] MEDS ORDERED: MULTIVITAMIN TAB PO SCH (09:00)
[2016-12-26] MEDS: MIDODRINE 2.5 MG TAB PO SCH (09:01)
[2016-12-26 12:17] VITALS: BP 131/77; PULSE 74; TEMP 36.9; O2SAT 97
--- NOTE | 2016-12-26 13:06 | Anesthesiology Progress Note ---
Anesthesia Post Op Note Date & Time Dec 26, 2016 at 13:05 Vital Signs Vital Signs Past 12 Hours Date Time Temp Pulse Resp B/P (MAP) Pulse Ox O2 Delivery O2 Flow Rate FiO2 12/26/16 12:17 36.9 74 16 131/77 (95) 97 Room Air 12/26/16 07:31 37.0 69 16 106/67 (80) 96 Room Air 12/26/16 07:21 Room Air 12/26/16 04:39 36.9 78 16 132/81 (98) 96 Room Air Notes Mental Status: alert / awake / arousable, participated in evaluation Pt Amnestic to Procedure: Yes Nausea / Vomiting: adequately controlled Pain: adequately controlled Airway Patency, RR, SpO2: stable & adequate BP & HR: stable & adequate Hydration State: stable & adequate Anesthetic Complications: no major complications apparent
[2016-12-26 15:24] VITALS: BP 129/76; PULSE 75; TEMP 37.1; O2SAT 97
[2016-12-26 15:52] VITALS: BP 129/76; PULSE 75; TEMP 37.1; O2SAT 97
== END 2016-12-26 17:35 | disposition home or self-care (01) ==
LOC: C.ACU 10:49 → C.3E 13:00 → ENRESERV 15:05
PROVIDERS: ADMIT Orthopaedic Surgery; ATTEND Orthopaedic Surgery
DX: S76.111A Strain of right quadriceps muscle, fascia and tendon, initial encounter (principal); X58.XXXA Exposure to other specified factors, initial encounter; Z96.652 Presence of left artificial knee joint

== ENCOUNTER 2018-11-17 13:48 | Observation (INO) ==
--- NOTE | 2018-11-17 14:58 | History & Physical Report ---
Date of Service November 17, 2018 Assessment & Plan (1) Appendicitis: This patient's history, physical findings, laboratories and CT findings are consistent with appendicitis. I have recommended a laparoscopic appendectomy. I explained the possible need to convert to an open procedure. I explained the possible complications associated with those procedures. The patient wishes to go ahead with surgery and has signed a consent form. History of Present Illness Chief Complaint: Weakness Primary Care Provider: Zen Miller This is an 83-year-old male who presented to [facility] with a complaint of weakness. He also had not been eating for about 2 or 3 days. The patient is a poor historian and there are no family members present to help with a history. He also was having some mild abdominal pain. He denies nausea and vomiting however. He stated that on Saturday he was sitting in his living room and told his son that he was and went up to bed. He had difficulty then getting out of bed. He denies fever. He had a bowel movement that was loose yesterday morning. He denies melena and hematochezia. He was taken to the [facility] where evaluation including CT scan showed evidence of uncomplicated appendicitis. Due to the fact that there is no surgeon available there they transferred him to our facility. Allergies Allergy/AdvReac Type Severity Reaction Status Date / Time No Known Allergies Allergy Verified 12/25/16 11:47 Home Medications Home Medications Medication Instructions Recorded Confirmed Type MULTIVITAMINS/MINERALS (MVI WITH 1 tab PO QAM #0 tab 11/20/11 History MINERALS) Midodrine (Midodrine HCl) 5 mg PO BID #0 09/27/16 History DOCUSATE SODIUM (COLACE) 1 cap PO PRN 30 Days #0 cap 12/11/16 History Aspirin (Aspirin EC Low Dose) 81 mg PO BID 30 Days #60 tabs 12/26/16 Rx Past Med/Surg History Medical History Diverticulitis Hypotension Prostate cancer Surgical History S/P TKR (total knee replacement) Bilateral S/P cholecystectomy S/P prostatectomy Social History Feels Safe at Home: Yes Smoking Status: Never smoker Hx Alcohol Use: No Hx Substance Use: No Review of Systems Review of Systems: All systems reviewed & are unremarkable except as noted in HPI & below Physical Exam Constitutional: no acute distress Neck: trachea midline Respiratory: normal respiratory effort, lungs clear to auscultation Cardiovascular: Rate/Rhythm: regular rate and regular rhythm Gastrointestinal (Abdomen): Inspection/Auscultation: normal bowel sounds; abdomen not distended Percussion/Palpation: + abdomen tender (Mild tenderness to moderate palpation in the right lower quadrant) and abdomen soft; no hernia Skin: no rashes, warm and dry Lymphatic: no cervical lymphadenopathy Results & Data Vital Signs (Past 12 Hours) Vital Signs Temp Pulse Resp BP Pulse Ox 11/17/18 14:12 36.6 C 75 20 141/83 H 98 Laboratory Results Laboratory evaluation from [facility] WBC 8.2 Hemoglobin 14.1 Hematocrit 41.0 Platelet count 180,000 Sodium 138 Potassium 4.8 Carbon dioxide 27 Chloride 102 BUN 13 Creatinine 0.9 Glucose 131 Total bilirubin 1.5 AST 50 ALT 20 Alkaline phosphatase 79 Amylase 45 Lipase 71 Lactic acid 1.1 Troponin less than 0.02 INR 1.2 [address]TT [address] scan of abdomen and pelvis from [facility] shows atelectasis in lung bases. Status post cholecystectomy with unchanged bilateral renal cysts. Liver spleen, pancreas, adrenal glands and bladder are unremarkable. Prostate gland surgically absent. The appendix is enlarged measuring 8 mm in diameter with adjacent inflammatory fat stranding. There is no evidence of perforation or abscess. There is no evidence of bowel obstruction. There is atherosclerotic calcification of the aorta without aneurysmal dilatation. There is no adenopathy.
[2018-11-17] MEDS ORDERED: BUPIVACAINE 0.5 % 5 MG/1 ML MPF 30ML VIAL ONE (15:03)
[2018-11-17] MEDS ORDERED: CEFAZOLIN 250 MG/ML 1 GM VIAL ONE ×2 (15:03→16:49)
[2018-11-17] MEDS ORDERED: HEPARIN (PORCINE) 1000 UNIT/ML 10 ML (CATH LAB USE ONLY) ONE (15:03)
--- NOTE | 2018-11-17 15:03 | Anesthesiology Consultation ---
Date of Service November 17, 2018 Assessment & Plan (1) Encounter for pre-operative examination: Chart Review Chart Review: Acceptable Risk for Surgery Consults Requested none ASA [id number] Proposed Anesthesia Anesthesia Type: General Risk / Benefits Reviewed With: PT / POA / Parent / Guardian, Accepts Plan and Informed Consent Obtained History Surgery Operation Date: 11/17/18 14:55 Proposed Procedures p Laparoscopic Appendectomy - Richard Velazquez MD Height/Weight Height: 5 ft 11 in Weight: 77.5 kg Allergies Allergy/AdvReac Type Severity Reaction Status Date / Time No Known Allergies Allergy Verified 12/25/16 11:47 Medications Home Medications Medication Instructions Recorded Confirmed Last Taken MULTIVITAMINS/MINERALS (MVI WITH 1 tab PO QAM #0 tab 11/20/11 Unknown MINERALS) Midodrine (Midodrine HCl) 5 mg PO BID #0 09/27/16 Unknown DOCUSATE SODIUM (COLACE) 1 cap PO PRN 30 Days #0 cap 12/11/16 Unknown Aspirin (Aspirin EC Low Dose) 81 mg PO BID 30 Days #60 tabs 12/26/16 Unknown NPO Date Last Intake of Fluids: 11/17/18 Time Last Intake of Fluids: 08:00 Date Last Intake of Solids: 11/16/18 Time Last Intake of Solids: 21:30 Past Medical History Medical History Appendicitis (Acute) Hypotension (Chronic) Prostate cancer (Resolved) Diverticulitis Exercise / Class Metabolic Activity II 4-5 Yardwork/Stairs/Walk up hill Negative for chest pain or shortness of breath. Past Surgical History Surgical History S/P TKR (total knee replacement) Bilateral S/P cholecystectomy S/P prostatectomy Past Anesthesia History No Hx of Anesthesia Complications History of PONV No Hx of PONV and No Hx of Motion Sickness Social History Smoking Status: Never smoker Hx Alcohol Use: No Hx Substance Use: No Review of Systems Patient denies active symptoms of GERD. Physical Exam Vital Signs Last Vital Signs Temp 36.6 C 11/17/18 14:12 Pulse 75 11/17/18 14:12 Resp 20 11/17/18 14:12 BP 141/83 H 11/17/18 14:12 Pulse Ox 98 11/17/18 14:12 Constitutional not obese ENMT Mouth: no TMJ abnormality and oral opening not small Thyromental Distance: < 3.5 Finger Breadths Mallampati Class: II Neck normal visual inspection; neck extension not limited Respiratory normal respiratory effort Auscultation: lungs clear to auscultation bilaterally Cardiovascular Rate/Rhythm: regular rate and regular rhythm Heart Sounds: no murmur Neurologic moves all extremities Psychiatric Orientation: alert and oriented x 3 Testing Laboratory Results WBC: 8.2 H/H: 14.1/41 PLATELETS: 180 SODIUM: 138 POTASSIUM: 4.8 CHLORIDE: 102 CO2: 27 BUN: 13 CREATININE: 0.9 GLUCOSE: 131 Troponin: <0.02 PT: 14.2 PTT: 29.9 INR: 1.22 UA: TYPE AND SCREEN: Electrocardiogram Date: 11/17/18 Findings: + NSR @ (72) and + RBBB LAFB (bifascicular block)
[2018-11-17] MEDS ORDERED: ONDANSETRON INJ 2 MG/ML 2 ML VIAL ONE (15:08)
[2018-11-17] MEDS ORDERED: fentaNYL citrate 100 MCG/2 ML VIAL ONE (15:08)
[2018-11-17] MEDS ORDERED: PROPOFOL IV EMULSION 10 MG/ML 20 ML VIAL IV ONE ×2 (15:08→17:23)
[2018-11-17] MEDS ORDERED: LIDOCAINE HCL 2% 2 ML VIAL/AMP(20MG/ML) INFIL ONE (15:08)
[2018-11-17] MEDS ORDERED: SUCCINYLCHOLINE CHLORIDE 20 MG/ML 10 ML VIAL ONE (15:08)
[2018-11-17] MEDS ORDERED: DEXAMETHASONE SOD INJ 4 MG/ML VIAL ONE (15:08)
[2018-11-17] MEDS ORDERED: ROCURONIUM BROMIDE 10 MG/ML 5 ML VIAL ONE ×3 (15:08→15:14)
[2018-11-17] MEDS ORDERED: CEFAZOLIN 2000MG 2,000 MG/15 ML SYR IV ONE (16:52)
[2018-11-17] MEDS ORDERED: ONDANSETRON INJ 2 MG/ML 2 ML VIAL IV PRN ×2 (17:03→18:42)
[2018-11-17] MEDS ORDERED: ePHEDrine sulfate 50 MG/ML AMP IV PRN (17:03)
[2018-11-17] MEDS ORDERED: ATROPINE SULFATE 0.1 MG/ML 10ML SYR IV PRN (17:03)
[2018-11-17] MEDS ORDERED: fentaNYL citrate 100 MCG/2 ML VIAL IV PRN (17:03)
[2018-11-17] MEDS ORDERED: GLYCOPYRROLATE 0.2 MG/ML VIAL ONE (17:12)
[2018-11-17] MEDS ORDERED: NEOSTIGMINE METHYLSULFATE 5 MG/5 ML SYR ONE (17:12)
--- NOTE | 2018-11-17 17:32 | Post Operative Brief Note ---
Immediate Post Op Note v1 Date of Surgery November 17, 2018 Pre & Post Diagnosis Operation Date: 11/17/18 14:55 Pre-Op Diagnosis: acute appendicitis Post-Op Diagnosis: acute appendicitis Procedure Operation Date: 11/17/18 14:55 Actual Procedures p Laparoscopic Appendectomy(Not Applicable) - Richard Velazquez MD Surgeon Richard Velazquez MD Vp Cardiovascular Service Line None Estimated Blood Loss 5 Findings Consistent with Post-Op Diagnosis Specimens Appendix Drains Jane Catheter Anesthesia Type General Complications none
[2018-11-17] MEDS ORDERED: OXYCODONE/ACETAMINOPHEN 5mg/325mg TAB PO PRN (18:42)
[2018-11-17] MEDS ORDERED: MoRPHine SULFATE 4 MG/ML 1 ML CARP\\VIAL IV PRN (18:42)
[2018-11-17] MEDS ORDERED: DOCUSATE SODIUM 100 MG CAP PO PRN (18:42)
--- NOTE | 2018-11-17 19:15 | Anesthesiology Progress Note ---
Date of Service November 17, 2018 Anesthesia Post Procedure Vital Signs Vital Signs: Temp Pulse Pulse Resp BP BP Pulse Ox 11/17/18 18:20 36.5 C 80 16 120/86 96 11/17/18 18:10 78 16 135/75 96 11/17/18 18:00 72 16 136/83 99 11/17/18 17:50 70 16 119/87 100 11/17/18 17:43 36.2 C L 63 16 134/84 98 11/17/18 14:12 36.6 C 75 20 141/83 H 98 Pain Intensity Upper Abdomen: Pain Intensity: 10 Transfer of Care Handoff Completed per policy Notes Mental Status: alert / awake / arousable and participated in evaluation Patient Amnestic to Procedure: Yes Nausea / Vomiting: adequately controlled Pain: adequately controlled Airway Patency, RR, SpO2: stable & adequate BP & HR: stable & adequate Hydration State: stable & adequate Anesthetic Complications: no major complications apparent and Pt Satisfied with anesthetic care Notes: Pt awoke mildly confused post anesthesia - expect this to improve overnight.
[2018-11-17] MEDS: MIDODRINE HCL 2.5 MG TAB PO SCH (21:07)
--- NOTE | 2018-11-17 22:46 | Operative Report ---
DATE OF OPERATION: 11/17/2018 PREOPERATIVE DIAGNOSIS: Appendicitis. POSTOPERATIVE DIAGNOSIS: Appendicitis. PROCEDURE: Laparoscopic appendectomy. SURGEON: Richard Velazquez MD. FINDINGS: The distal two-thirds of the appendix was hyperemic, firm and wrapped in inflammatory change by the mesentery. The base of the appendix and the cecum at the base of the appendix were normal. There was no evidence of perforation. There was no evidence of abscess. The visible bowel appeared normal. The omentum was adherent to the lateral side wall down towards the pelvis and partially adherent inside a hernia sac in the right inguinal region. TECHNIQUE: The patient was given a general anesthetic and the area was prepped and draped in the usual sterile fashion. A small transverse incision was made transversely below the umbilicus, carried down through the subcutaneous tissue to the fascia, which was grasped with 2 Ny clamps and incised between. The peritoneum was identified, incised, and the introducer was placed bluntly. The abdomen was then insufflated to a pressure of 15 mmHg with carbon dioxide. The lower midline introducer was placed under direct vision through small skin incisions. I then looked over in the right lower quadrant. The omentum and their attachments to the lateral sidewall were visualized. I then placed the left lower quadrant introducer under direct vision through small skin incision. I placed medial upward traction on the omentum, which reduced its attachment to the hernia sac in the inguinal region. I then divided the attachments using cautery. I then continued that cautery dissection of the omentum away from the lateral abdominal wall working from inferior to superior up along the right lateral abdominal wall until I was up to about the level of the mid ascending colon. I could then see the cecum posterior to those omental attachments and I was able to elevate the cecum. The appendix was seen extending off the inferior surface of the cecum and then working posteriorly. I then retracted the small bowel medially, which allowed me to identify the flimsy attachments to the mesentery of the small bowel. These were taken down bluntly and I was able to identify the base of the appendix and separate the mesoappendix away from the medial attachments and then worked along the medial aspect down towards the tip of the appendix, attachments bluntly. I was then able to elevate the entire mesoappendix and appendix. That allowed me to easily confirm that I had identified the base of the appendix and identify the attachment of the mesentery of the appendix at the base of the appendix. A plane was then easily established between those 2 structures, and I was able to divide the mesoappendix using a firing of the Endo-DREW stapler. That allowed me then to completely elevate the appendix and confirmed again that I was at the base. The appendix was amputated using the Endo-DREW. The appendix was placed into an Endobag and brought out through the left lower quadrant introducer site. That introducer was replaced. The right lower quadrant was irrigated and the irrigation was removed. Any irrigation in the right upper quadrant or pelvis was removed. There were some attachments of the omentum to the anterior abdominal wall beneath his Ny incision in the right subcostal region that had been used to remove his gallbladder. The staple line on the cecum as well as the mesoappendix staple line were inspected and there was no bleeding. The gas was allowed to escape and the introducers were removed. The fascia of the umbilical and left lower quadrant introducer sites was closed with interrupted 0 Vicryl and skin of all the incisions was closed with 4-0 Monocryl in either an interrupted or running subcuticular fashion. The skin was anesthetized with 0.5% Marcaine. The skin was cleansed, dried, benzoin placed, Steri-Strips applied. Estimated blood loss was 5 mL. Sponge, needle and instrument counts were correct prior to closure. The patient tolerated the surgical procedure without complication and was transferred to recovery. I attest to the content of the Intraoperative Record and any orders documented therein. Any exception s are noted below.
--- NOTE | 2018-11-18 08:22 | Anesthesiology Progress Note ---
Date of Service November 18, 2018 Anesthesia Post Procedure Vital Signs Vital Signs: Temp Pulse Pulse Pulse Resp BP BP 11/18/18 07:43 36.6 C 79 18 153/89 H 11/18/18 03:12 36.6 C 82 18 149/88 H 11/17/18 22:57 36.6 C 81 18 144/88 H 11/17/18 20:51 36.7 C 78 18 148/65 H 11/17/18 19:40 36.3 C L 84 17 148/79 H 11/17/18 18:40 36.4 C L 80 16 144/78 H 11/17/18 18:20 36.5 C 80 16 120/86 11/17/18 18:10 78 16 135/75 11/17/18 18:00 72 16 136/83 11/17/18 17:50 70 16 119/87 11/17/18 17:43 36.2 C L 63 16 134/84 11/17/18 14:12 36.6 C 75 20 141/83 H Pulse Ox 11/18/18 07:43 94 11/18/18 03:12 97 11/17/18 22:57 96 11/17/18 20:51 95 11/17/18 19:40 93 11/17/18 18:40 94 11/17/18 18:20 96 11/17/18 18:10 96 11/17/18 18:00 99 11/17/18 17:50 100 11/17/18 17:43 98 11/17/18 14:12 98 Pain Intensity Upper Abdomen: Pain Intensity: 10 Notes Mental Status: alert / awake / arousable Patient Amnestic to Procedure: Yes Nausea / Vomiting: adequately controlled Pain: adequately controlled Airway Patency, RR, SpO2: stable & adequate BP & HR: stable & adequate Hydration State: stable & adequate Anesthetic Complications: no major complications apparent and Pt Satisfied with anesthetic care
[2018-11-18] MEDS: MIDODRINE HCL 2.5 MG TAB PO SCH ×3 (08:41→19:58)
[2018-11-18] MEDS ORDERED: ACETAMINOPHEN 325 MG TAB PO PRN (09:01)
--- NOTE | 2018-11-18 09:01 | Surgery Progress Note ---
Date of Service November 18, 2018 Assessment & Plan (1) Appendicitis: POD # 1 s/p laparoscopic appendectomy -vitals stable, afebrile - post op pain minimal - urinary retention, required straight cath 700 cc - no n/v Plan: continue Percocet prn pain Continue regular diet encourage ambulation and oob to chair will need to see if patient can void on his own prior to discussion of discharge will check back in with patient this afternoon Dr. Velazquez has seen and examined pt, agrees with above Subjective feeling good this morning minimal pain no n/v required straight cath around 3:30 am , 700 cc urine per nurse, still has not voided on his own Physical Exam Constitutional: WD/WN, vitals as above no acute distress Gastrointestinal (Abdomen): Inspection/Auscultation: abdomen normal to inspection; abdomen not distended Percussion/Palpation: + abdomen tender (mild at incision sites) and abdomen soft; no guarding and abdomen not rigid Skin: no rashes, warm and dry + incision (covered with dressing clean and dry) Psychiatric: A+Ox3, euthymic affect Results & Data Vital Signs (Past 12 Hours) Vital Signs Temp Pulse Resp BP Pulse Ox 11/18/18 07:43 36.6 C 79 18 153/89 H 94 11/18/18 03:12 36.6 C 82 18 149/88 H 97 11/17/18 22:57 36.6 C 81 18 144/88 H 96
[2018-11-18] MEDS ORDERED: LIDOCAINE 2% JELLY 5 ML TUBE ONE (12:46)
[2018-11-18] MEDS: POLYETHYLENE (MIRALAX) 17 GM PACK PO SCH (17:31)
[2018-11-18] MEDS: DOCUSATE SODIUM 100 MG CAP PO SCH ×2 (17:31→19:59)
[2018-11-19] MEDS ORDERED: BISACODYL 10 MG SUPP PR STA (07:48)
--- NOTE | 2018-11-19 08:23 | Surgery Progress Note ---
Date of Service November 19, 2018 Assessment & Plan (1) Appendicitis: POD # 2 s/p laparoscopic appendectomy - vitals stable, afebrile - post op pain minimal Urinary retention -required Cadena catheter, UO 2125cc in last 24 hours, 800cc last shift - History in past post orthopedic procedure - History of prostatectomy Constipation - chronically at baseline - bowel movement every 2-3 days, sometimes very hard stools - takes stool softener at home Plan: Okay from surgical standpoint for discharge today Will go home with Cadena catheter, will need to see urology in 1 week or less for further management PT saw patient, recommending home with home PT, case management following Will give one time Dulcolax suppository to see if that stimulates bowel movement Will need to follow-up in surgery office in [address] Velazquez has seen and examined pt, agrees with above Subjective feeling good some soreness at incision sites passed some gas but no bowel movement yet no n/v has cadena catheter in place Physical Exam Constitutional: WD/WN, vitals as above no acute distress sleeping upon entering room Gastrointestinal (Abdomen): Inspection/Auscultation: abdomen normal to inspection; abdomen not distended Percussion/Palpation: abdomen soft; abdomen nontender, no guarding and abdomen not rigid Skin: no rashes, warm and dry + incision (covered with steri strips clean and dry) Psychiatric: Orientation: alert Results & Data Vital Signs (Past 12 Hours) Vital Signs Temp Pulse Pulse Resp BP Pulse Ox 11/19/18 07:50 36.4 C L 64 17 128/90 94 11/18/18 22:55 36.9 C 65 16 143/76 H 96
[2018-11-19] MEDS: MIDODRINE HCL 2.5 MG TAB PO SCH (08:49)
[2018-11-19] MEDS: POLYETHYLENE (MIRALAX) 17 GM PACK PO SCH (08:49)
[2018-11-19] MEDS: DOCUSATE SODIUM 100 MG CAP PO SCH (08:49)
[2018-11-19] MEDS ORDERED: BISACODYL 10 MG SUPP PR ONE (10:30)
--- NOTE | 2018-11-20 11:27 | Discharge Summary ---
Date of Service November 20, 2018 Admission HPI Per Admitting Provider This is an 83-year-old male who presented to [facility] with a complaint of weakness. He also had not been eating for about 2 or 3 days. The patient is a poor historian and there are no family members present to help with a history. He also was having some mild abdominal pain. He denies nausea and vomiting however. He stated that on Saturday he was sitting in his living room and told his son that he was and went up to bed. He had difficulty then getting out of bed. He denies fever. He had a bowel movement that was loose yesterday morning. He denies melena and hematochezia. He was taken to the [facility] where evaluation including CT scan showed evidence of uncomplicated appendicitis. Due to the fact that there is no surgeon available there they transferred him to our facility. Principal Diagnosis Acute appendicitis Discharge Data Allergies Allergy/AdvReac Type Severity Reaction Status Date / Time No Known Allergies Allergy Verified 12/25/16 11:47 Procedures Performed Operation Date: 11/17/18 14:55 Actual Procedures p Laparoscopic Appendectomy(Not Applicable) - Richard Velazquez MD Hospital Course (1) Appendicitis: Patient was taken to operating room for laparoscopic appendectomy possible open by Dr. Velazquez. Patient found to have acute appendicitis without perforation or abscess. Patient tolerated procedure well and was transferred to recovery and then to medical/surgical floor. Patient was started on PO Percocet prn pain, IV Zofran prn nausea, regular diet, and activity as tolerated. POD # 1 vitals stable, afebrile, post op pain minimal and tolerating diet. Was unable to void on his own since surgery and required straight cath at 0330 with 700 cc output. He still had not urinated on his own when evaluated at 8:00 am. Nurse called around noon and patient still unable to void with bladder scan showing about 450 cc. Michelle catheter was placed and kept. Patient was also having some constipation. Last bowel movement was 11/15/18. Started PO Colace BID and Miralax daily. Case management discussed discharge plans with family. Family concerned about his balance and history of falls and with broken arm. PT/OT also consulted. Patient was kept overnight to monitor urinary output and to further evaluate discharge needs. POD # 2 vitals stable, afebrile, post op pain minimal, good urine output, passing gas but no bowel movement. Worked with PT who recommended home with PT. He was given dulcolax suppository to see if that stimulate a bowel movement prior to discharge. Family was contacted via case management. Patient to be discharged home with home PT via [employer]. Discharged home with Michelle catheter for urinary retention and advised to follow- up with PCP within a few days in order to get referral to urologist (had prior urologist in [place] for his prostatectomy) (2) Urinary retention: Patient developed urinary retention post op and required straight catheter at 0330 morning of POD # 1. Required placement of Michelle catheter in afternoon of POD # 1 as still unable to void and bladder scan showing 450 cc. Patient had good urinary output . Patient was discharged home on POD # 2 with Michelle catheter and is to follow with PCP in next few days to get referral to his prior urologist group (prostectomy 12 years ago) for further evaluation and management. (3) Constipation: Patient stated he has had constipation for past couple of years with di fficulty with bowel movements at times and hard stools that require evacuation at times. Takes Colace daily at home. No other medications or dietary modifications. Patient was given Colace BID and daily Miralax while admitted. Also given dulcolax suppository on POD # 2. He was advised to follow with PCP for definitive management but recommended fiber supplement like benefiber/metamucil daily , increased fiber in diet, Colace BID and miralax as needed. Total Time Total Time Spent Total Time Spent (In Minutes): 1 hour Total Time Includes: Examination of the Patient, Discharge Planning, Medication Reconciliation and Communication With Other Providers (case management) Discharge Plan Discharge Items Patient Disposition: Home - Home Health Services Reason For Visit: APPENDICITIS Discharge Diagnosis: Appendicitis Urinary retention requiring Michelle Catheter Discharge Goals: Decrease discomfort and Therapeutic intervention Activity: Per 'Additional Instructions' section Non-emergency contact: Surgeon Call non-emergency contact if: your pain is unusual for you, your pain is concerning for you, you have a fever, your temperature is above 101, your wound has increased redness, your wound has increased drainage and your wound pain has increased Follow-up/Referrals: Richard Velazquez MD [Emergency Provider] - (Follow-up in surgical office on November 27 at 10:[address] Zen Jameson [Primary Care Provider] - Diet: Regular Addtl Provider Instructions: Post-Surgical ~Discharge Instructions Activity Recommendations: - lifting limitation: (10 pounds for 2 weeks), - exercise/sex/sports limit: (nonstrenuous for 2 weeks), - driving or machine use limit: (none for 1 week), - Shower/bathe limit: (may shower) Diet: - Resume previous diet SPECIAL CARE INSTRUCTIONS: - May shower. Let water run over area and pat dry. - Leave steri strips on for one week. - Call the surgeon's office with any questions or concerns - - (ex. temperature higher than 101 degrees F, excessive bleeding or pain). MEDICATIONS: - Resume previous medications unless instructed otherwise by your surgeon. - You can take extra strength Tylenol or Ibuprofen as needed for mild pain. - 650 mg of Tylenol every 6 hours as needed - 600 mg of Ibuprofen every 6 hours as needed. Take with food. - Recommend increasing stool softener (Colace) to twice daily and to take fiber supplement such as Benefiber or Metamucil daily. If those do not help with constipation or hard stools, may take Miralax (1 capful) daily until bowel movement or if stools become loose discontinue. FOLLOW UP VISIT: - You need a follow-up appointment with your PCP within 1 week. You had urinary retention after your surgery which required placement of a urinary catheter. You will go home with urinary catheter and will need to be seen by urologist for further evaluation. - Follow up with Dr. Velazquez on November 27 at 10:15 am. Office is l ocated at [facility] in [place], [place]. Address is [address] [place] [id number] Prescriptions: Continued MULTIVITAMINS/MINERALS (MVI WITH MINERALS) tablet 1 tab PO QAM Qty: 0 RF: 0 Midodrine (Midodrine HCl) 2.5 MG tablet 5 mg PO BID Qty: 0 RF: 0 DOCUSATE SODIUM (COLACE) 100 MG capsule 1 cap PO PRN 30 Days Qty: 0 RF: 0 Aspirin (Aspirin EC Low Dose) 81 MG ENTERIC COATED TAB 81 mg PO BID 30 Days Qty: 60 RF: 0 Stand-Alone Forms: My [facility]/Other Patient Handouts: Appendectomy Laparoscopic Dc Discharge Orders: Discharge Order (Routine); Ordered 11/19/18 Ordered By: Heather Diop Admission Data Admit Date/Time: 11/17/18 17:44 Attending Provider: Richard Velazquez Admit Provider: Richard Velazquez Primary Care Provider: Zen Miller Service: Surgical Services Other Interventions: Discharge Summary Assessment (RN) Last Done: 11/19/18 11:11 Pending Studies at Discharge: Yes (appendix pathology, will be reviewed at follow-up visit) DC Date/Time DO NOT enter until pt leaves facility: 11/19/18 13:53
== END 2018-11-19 13:53 | disposition home health service (06) ==
LOC: ED 13:48 → 3W 15:46 → ASU 15:46